=== PATIENT | male | born 1990 | race African-American/Black ===

== ENCOUNTER 2023-02-07 12:54 | Emergency (ER) | payer OTHER, MEDICAID, SELFPAY ==
[2023-02-07 13:16] VITALS: BP 134/91; PULSE 75; RESP 18; TEMP 37; O2SAT 99; BMI 25.0
[2023-02-07 14:28] VITALS: BP 130/85; PULSE 65; RESP 18; O2SAT 99
--- NOTE | 2023-02-07 15:27 | ED.SKABFB ---
HPI - Skin/Abscess/Foreign Bdy <Morelia Kang PA-C - Last Filed: 02/07/23 15:31> General Chief complaint: Skin/Abscess/Foreign Body Stated complaint: abscess right side jaw x3 weeks Time Seen by Provider: 02/07/23 14:09 Source: patient Mode of arrival: Ambulatory Limitations: no limitations History of Present Illness HPI narrative: Patient is a 32-year-old male who presents with a recurrent small area of cellulitis with occasional abscess on his right cheek. He reports this gets more swollen every week and then he is drains a small amount of pus from it. He has no fever, no swelling in his neck, no systemic symptoms. In the past he is had a similar lesion on his left cheek but it has resolved more quickly. This one seems to be more persistent. He has not tried any therapy for this besides squeezing it. He is not diabetic. Related Data Previous Rx's Medication Instructions Recorded amoxicillin 500 mg capsule 500 mg PO TID #30 caps 01/16/16 amoxicillin 500 mg capsule 500 mg PO TID #30 caps 01/16/16 cephalexin 500 mg tablet 1,000 mg (2 x 500 mg) PO Q12H 5 02/07/23 days #20 tabs mupirocin 2 % topical ointment 1 applic topical BID 7 days #22 02/07/23 grams Allergies Allergy/AdvReac Type Severity Reaction Status Date / Time No Known Drug Allergies Allergy Verified 02/07/23 13:16 Review of Systems <Morelia Kang PA-C - Last Filed: 02/07/23 15:31> Review of Systems ROS Unobtainable: All systems reviewed & are unremarkable except as noted in HPI and below Patient History <Morelia Kang PA-C - Last Filed: 02/07/23 15:31> Social History Smoking Status: Current every day smoker Smoking Status: Current every day smoker tobacco type: cigarettes alcohol intake frequency: a few times a week Substance Use Type: marijuana Exam <Morelia Kang PA-C - Last Filed: 02/07/23 15:31> Narrative Exam Narrative: GENERAL: 32 year old patient appears stated age. Well-developed patient, in no distress. NEURO: AOx3. HEAD: Atraumatic. Normocephalic. EYES: Pupils equal round and reactive. Extraocular motions intact. No scleral icterus. No injection or drainage. ENT: Nose without bleeding or purulent drainage. No appreciable dental abscess. Airway patent. NECK: Trachea midline. Non tender RESPIRATORY: No distress SKIN: 5mm area of cellulitis over the right cheek with surrounding loss of his rodriguez hair. No fluctuance. Patient appears well. Initial Vital Signs Initial Vital Signs: Vital Signs Temperature 98.6 F 02/07/23 13:16 Pulse Rate 75 02/07/23 13:16 Respiratory Rate 18 02/07/23 13:16 Blood Pressure 134/91 H 02/07/23 13:16 Pulse Oximetry 99 02/07/23 13:16 Oxygen Delivery Method Room Air 02/07/23 13:16 <Matthew Frazier DO - Last Filed: 02/07/23 15:48> Initial Vital Signs Initial Vital Signs: Vital Signs Temperature 98.6 F 02/07/23 13:16 Pulse Rate 75 02/07/23 13:16 Respiratory Rate 18 02/07/23 13:16 Blood Pressure 134/91 H 02/07/23 13:16 Pulse Oximetry 99 02/07/23 13:16 Oxygen Delivery Method Room Air 02/07/23 13:16 Course <Morelia Kang PA-C - Last Filed: 02/07/23 15:31> Vital Signs Vital signs: Vital Signs - 8 hr 02/07/23 13:16 02/07/23 14:28 Temperature 98.6 F Pulse Rate 75 65 Respiratory Rate 18 18 Blood Pressure 134/91 H 130/85 Pulse Oximetry 99 99 Oxygen Delivery Method Room Air Room Air <Matthew Frazier DO - Last Filed: 02/07/23 15:48> Vital Signs Vital signs: Vital Signs - 8 hr 02/07/23 13:16 02/07/23 14:28 Temperature 98.6 F Pulse Rate 75 65 Respiratory Rate 18 18 Blood Pressure 134/91 H 130/85 Pulse Oximetry 99 99 Oxygen Delivery Method Room Air Room Air MDM - Skin/Abscess/Foreign Bdy <Morelia Kang PA-C - Last Filed: 02/07/23 15:31> MDM Narrative Medical decision making narrative: Multiple etiologies for patient's symptoms considered including, but not limited to: Folliculitis, cellulitis, abscess Patient has very localized infection with no evidence of current abscess or fluid collection. He is well-appearing. Since this is not resolved on its own, I suggested treating with oral antibiotics as well as mupirocin topically. Patient is agreeable to this. Discussed treatment course, what to expect and return precautions. Patient's symptoms improved over duration of stay with above-stated therapies. Findings and discharge diagnosis discussed with patient/family followed by verbalization of understanding Return precautions discussed with patient/family whom verbalize understanding of diagnosis and plan Discharge Plan Departure Patient Disposition: Home Clinical Impression: Cellulitis Instructions: DI for Cellulitis -- Adult Prescriptions: New cephalexin 500 mg tablet 1,000 mg PO Q12H 5 Days Qty: 20 0RF mupirocin 2 % ointment 1 applic topical BID 7 Days Qty: 22 0RF No Action amoxicillin 500 MG capsule 500 mg PO TID Qty: 30 0RF amoxicillin 500 MG capsule 500 mg PO TID Qty: 30 0RF Stand Alone Forms: Patient Portal/API ED Sign-out <Matthew Frazier, DO - Last Filed: 02/07/23 15:48> Cosign ED Attending Cosignature Attestation: Dr Frazier Co-Sign Statement: I was available for consultation during this patient's emergency department visit. This chart is signed by myself for administrative purposes only. I did not have direct contact with this patient during this visit. They were seen independently by the APC.
== END 2023-02-07 14:29 | disposition home or self-care (01) ==
PROVIDERS: Emergency Provider Physician Assistant
DX: L03.211 Cellulitis of face (principal)
CPT/HCPCS: 99281